=== PATIENT | female | born 1970 | race Two or more races ===

== ENCOUNTER 2024-09-22 19:03 | Inpatient (IN) | payer MEDICAID, OTHER ==
[~2024-09-22] VITALS: Ht 160 cm; Wt 82.2 kg
--- NOTE | 2024-09-22 19:30 | ED.PDOC ---
WEL[employer] COM[employer]ATION HPI Comments 54-year-old female with no significant past medical history presents to the ED with a chief complaint of abnormal vaginal bleeding, with the associated blood clots, weakness, fatigue, in mild shortness of breath. Patient states that her symptoms have been onset for the past 4 weeks, and notes of presenting to [facility] urgent care earlier today where she had a hemoglobin level of 6.3. Patient was advised to present to [facility] for blood transfusion and ultrasound. Patient denies any abdominal pain, current , any nausea, vomiting, diarrhea, or any other associated symptoms, modifying it is felt this time. PHYSICAL EXAM: General: Awake, alert and oriented. No acute distress. Skin: Skin in warm, dry and intact. Appropriate color for ethnicity. HEENT: The head is normocephalic and atraumatic. Conjunctivae are clear without exudates or hemorrhage. Sclera is non-icteric. EOM are intact. No signs of nysta gmus. Eyelids are normal in appearance without swelling or lesions. Oral mucosa is pink and moist Neck: The neck is supple with normal range of motion. No JVD. Cardiac: Tachycardia Respiratory: No signs of respiratory distress. Lung sounds are clear in all lobes bilaterally without rales, rhonchi, or wheezes. Abdominal: No pain upon palpitation, no gross abnormality Extremities: Upper and lower extremities are atraumatic in appearance without deformity or edema. Neurological: The patient is awake, alert and oriented to person, place, and time with normal speech. Speech is clear. There is no facial asymmetry. Psychiatric: Appropriate mood and affect. Good judgement and insight. REVIEW OF SYSTEMS: General: No fever, no chills, or fatigue HEENT: No sore throat, no earache, no congestion, no neck pain. Cardiac: No chest pain. No palpitations. Lungs: No shortness of breath, no cough. GI: No nausea, no vomiting, no diarrhea, no constipation, no abdominal pain : No dysuria, frequency, or urgency. No hematuria. Musculoskeletal: No joint pain , no joint swelling, no extremity edema. Skin: No rash, no itching. Neuro: No headache, no dizziness, no weakness Gynecology: Abnormal vaginal bleeding, blood clots. Chief Complaint: Vaginal Bleed Time Seen by MD: 19:26 Reviewed Notes: Nurses Notes, Medications, Allergies Allergies: Coded Allergies: NO KNOWN ALLERGIES (Unverified , 09/22/24) Information Source: Patient, Relative (Child) Mode of Arrival: Ambulatory Timing: Days Prehospital treatment: None Severity: Moderate Vaginal Discharge: None Vaginal Lesions: None Bleeding Quality: Bright Red, Clotted Vaginal Mass: None Onset Of Mass/Bleeding: Menstrual Sexual Activity: Neither Last Consensual [place]: Unknown Blood Type: Unknown Symptoms of Possible : None Penetration Location: Uncertain Associated Signs and Symptoms: Vaginal Discharge, Vaginal Bleeding Past Medical History PAST MEDICAL HISTORY: Denies Surgical History: Denies all surgeries RESIDENTIAL CARPENTER History: No Pertinent RESIDENTIAL CARPENTER History Family History Family History: Unknown Social History Smoker: Non-Smoker Alcohol: Denies ETOH Use Drugs: Denies Drug Use Lives In: Home Was a procedure done? Was a procedure done?: No Differential Diagnosis (RESIDENTIAL CARPENTER) Vaginal Bleeding: Blood Loss Anemia, Dysmenorrhea, Ectopic , Menometrorrhagia, Menstrual Bleeding, UTI, Vaginitis Mass / Lesion: Bartholin Abscess, Bartholin Cyst, Vaginitis - Bacterial Vaginal Discharge: Physiologic Discharge, , UTI X-Ray, Labs, Meds, VS Vital Signs Date Time Temp Pulse Resp B/P (MAP) Pulse Ox O2 Delivery O2 Flow Rate FiO2 09/22/24 23:08 98.5 101 18 135/74 (94) 96 98.5 09/22/24 19:08 98.5 103 16 135/68 98 98.5 Lab Test 09/22/24 19:42 09/22/24 19:10 Range/Units White Blood Count 10.9 H 4.4-10.8 10^3/uL Red Blood Count 3.05 L 4.0-5.20 10^6/uL Hemoglobin 6.9 *L 12.2-16.2 g/dL Hematocrit 21.9 L 36.0-46.0 % Mean Corpuscular Volume 71.8 L 80.0-100.0 fL Mean Corpuscular Hemoglobin 22.6 L 28.0-32.0 pg Mean Corpuscular Hemoglobin Concent 31.5 L 32.0-36.0 g/dL Red Cell Distribution Width 18.0 H 11.8-14.3 % Platelet Count 430 140-450 10^3/uL Mean Platelet Volume 6.9 6.9-10.8 fL Neutrophils (%) (Auto) 74.0 37.0-80.0 % Lymphocytes (%) (Auto) 18.8 10.0-50.0 % Monocytes (%) (Auto) 6.6 0.0-12.0 % Eosinophils (%) (Auto) 0.1 0.0-7.0 % Basophils (%) (Auto) 0.5 0.0-2.0 % Neutrophils # (Auto) 8.1 1.6-8.6 10 ^3/uL Lymphocytes # (Auto) 2.0 0.4-5.4 10 ^3/uL Monocytes # (Auto) 0.7 0-1.3 10 ^3/uL Eosinophils # (Auto) 0 0-0.8 10 ^3/uL Basophils # (Auto) 0.1 0-0.2 10 ^3/uL Nucleated Red Blood Cells 0.2 % Sodium Level 139 136-145 mmol/L Potassium Level 4.0 3.5-5.1 mmol/L Chloride Level 105 98-107 mmol/L Carbon Dioxide Level 24 20-31 mmol/L Anion Gap 10 5-15 Blood Urea Nitrogen 10 9-23 mg/dL Creatinine 0.86 0.550-1.02 mg/dL Glomerular Filtration Rate Calc 81 >90 mL/min BUN/Creatinine Ratio 11.6 10.0-20.0 Serum Glucose 112 H 74-106 mg/dL Calcium Level 9.2 8.7-10.4 mg/dL Iron Level 15 L 50-170 ug/dL Total Iron Binding Capacity 419 250-425 ug/dL Percent Iron Saturation 3.6 L 15-50 % Beta HCG, Quantitative 0.1 L 1.5-4.2 mIU/mL Urine Color Colorless Yellow Urine Clarity Clear Clear Urine pH 7.5 5.0-9.0 Urine Specific [place] 1.010 1.001-1.035 Urine Protein Negative Negative Urine Ketones Negative Negative Urine Blood 3+ H Negative /uL Urine Nitrite Negative Negative Urine Bilirubin Negative Negative Urine Urobilinogen Normal Negative mg/dL Urine Leukocyte Esterase Negative Negative /uL Urine RBC 168 0 - 4 /hpf Urine Microscopic WBC 1 0-5 /HPF Urine Squamous Epithelial Cells Few <5 /hpf Urine Bacteria None seen None Seen /hpf Urine Glucose Normal Normal mg/dL Urine Test Negative Negative Urine Opiates Screen Neg NEGATIVE Urine Fentanyl Screen Neg NEGATIVE Urine Barbiturates Screen Neg NEGATIVE Urine Phencyclidine Screen Neg NEGATIVE Urine Amphetamines Screen Neg NEGATIVE Urine Benzodiazepines Screen Neg NEGATIVE Urine Cocaine Screen Neg NEGATIVE Urine Cannabinoids Screen Neg NEGATIVE PATIENT: LILLIAN ANN ACCT: [id number] UNIT: [id number] : 1970 LOC: ER ROOM / BED: / AGE / SEX: 54 / F ADM STATUS: REG ER SERVICE 25 ORDERING PHYSICIAN: XUAN GUTIERREZ MD PROCEDURE(s): PELUS - PELVIC REASON: Heavy vaginal bleeding ORDER NUMBER(s): [id number], ACCESSION NUMBER(s): [id number] PELVIC ULTRASOUND WITH TRANSABDOMINAL AND TRANSVAGINAL IMAGING CLINICAL HISTORY: Heavy vaginal bleeding COMPARISON: None TECHNIQUE: Transabdominal and transvaginal grayscale, color-flow Doppler, and duplex Doppler was performed. FINDINGS: The uterus measures 9.1 x 3.9 x 5.6 cm. Heterogeneous structure in the right uterine body measuring approximately 2.4 cm in diameter. Endometrial thickness 0.5 cm. Multiple presumed cervical nabothian cysts are noted. The ovaries are not visualized. Small amount of fluid in the cul-de-sac. IMPRESSION: Approximately 2.4 cm heterogeneous structure in the uterus which may represent a fibroid. This can be further evaluated with MRI. Multiple presumed cervical nabothian cysts. Ovaries are not visualized. Small amount of free fluid in the cul-de-sac is nonspecific and may be physiologic. ENT: LILLIAN ANN ACCT: [id number] UNIT: [id number] : 1970 LOC: ER ROOM / BED: / AGE / SEX: 54 / F ADM STATUS: REG ER SERVICE 08 ORDERING PHYSICIAN: XUAN GUTIERREZ MD PROCEDURE(s): PELTR - TRANSVAGINAL US NON OB REASON: VAG BLEED ORDER NUMBER(s): [id number], ACCESSION NUMBER(s): [id number] PELVIC ULTRASOUND WITH TRANSABDOMINAL AND TRANSVAGINAL IMAGING CLINICAL HISTORY: Heavy vaginal bleeding COMPARISON: None TECHNIQUE: Transabdominal and transvaginal grayscale, color-flow Doppler, and duplex Doppler was performed. FINDINGS: The uterus measures 9.1 x 3.9 x 5.6 cm. Heterogeneous structure in the right uterine body measuring approximately 2.4 cm in diameter. Endometrial thickness 0.5 cm. Multiple presumed cervical nabothian cysts are noted. The ovaries are not visualized. Small amount of fluid in the cul-de-sac. IMPRESSION: Approximately 2.4 cm heterogeneous structure in the uterus which may represent a fibroid. This can be further evaluated with MRI. Multiple presumed cervical nabothian cysts. Ovaries are not visualized. Small amount of free fluid in the cul-de-sac is nonspecific and may be physiologic. Time of 1ST Reevaluation: 21:26 Reevaluation 1ST: Unchanged Patient Education/Counseling: Other (For admission) Family Education/Counseling: Other (Need for admission) Departure 1 Departure Time of Disposition: 21:26 Impression: Primary Impression: Severe anemia Additional Impressions: Abnormal uterine bleeding Uterine fibroid Disposition: ADMITTED INPATIENT Condition: Stable Comments Blood transfusion initiated in ED Patient admitted to hospitalist service for further treatment, evaluation and monitoring. Critical Care Note Critical Care Time?: No Stability Stability form required: No Heart Score Heart Score: Heart Score Response (Comments) Value History N/A 0 EKG N/A 0 Age N/A 0 Risk Factors N/A 0 Troponin N/A 0 Total 0 I personally scribed for XUAN GUTIERREZ MD ([email or web address]) on 09/22/24 at 19:30. Electronically submitted by Anibal Erickson ([email or web address]). I personally scribed for XUAN GUTIERREZ MD ([email or web address]) on 09/22/24 at 20:39. Electronically submitted by Anibal Erickson ([email or web address]). I personally scribed for XUAN GUTIERREZ MD ([email or web address]) on 09/22/24 at 20:40. Electronically submitted by Anibal Erickson ([email or web address]). XUAN GUTIERREZ MD Sep 22, 2024 19:30
[2024-09-22 20:02] LABS: Urine Protein, UAD Negative (Negative)
[2024-09-22 20:14] LABS: Hematocrit 21.9 % (36.0-46.0)
[2024-09-22 20:17] LABS: Chloride 105 mmol/L (98-107); Mean Corpuscular Hemoglobin 22.6 pg (28.0-32.0); Mean Corpuscular Volume 71.8 fL (80.0-100.0); Nucleated Red Blood Cells % 0.2 %; Potassium 4.0 mmol/L (3.5-5.1); Sodium 139 mmol/L (136-145)
[2024-09-22 20:18] LABS: Anion Gap 10 (5-15); Calcium 9.2 mg/dL (8.7-10.4); Carbon Dioxide 24 mmol/L (20-31)
[2024-09-22 20:22] LABS: Hemoglobin 6.9 g/dL (12.2-16.2)
[2024-09-22 20:23] LABS: BUN/Creatinine Ratio 11.6 (10.0-20.0); Blood Urea Nitrogen 10 mg/dL (9-23)
[2024-09-22 20:24] LABS: Glucose 112 mg/dL (74-106)
--- NOTE | 2024-09-22 20:38 | DVH ---
PELVIC ULTRASOUND WITH TRANSABDOMINAL AND TRANSVAGINAL IMAGING CLINICAL HISTORY: Heavy vaginal bleeding COMPARISON: None TECHNIQUE: Transabdominal and transvaginal grayscale, color-flow Doppler, and duplex Doppler was per formed. FINDINGS: The uterus measures 9.1 x 3.9 x 5.6 cm. Heterogeneous structure in the right uterine body measuring a pproximately 2.4 cm in diameter. Endometrial thickness 0.5 cm. Multiple presumed cervical nabothian cysts are noted. The ovaries are not visualized. Small amount of fluid in the cul-de-sac. IMPRESSION: Approximately 2.4 cm heterogeneous structure in the uterus which may represent a fibroid. This can be further evaluated with MRI. Multiple presumed cervical nabothian cysts. Ovaries are not visualized. Small amount of free fluid in the cul-de-sac is nonspecific and may be physiologic.
[2024-09-22 23:54] LABS: Hematocrit 21.0 % (36.0-46.0); Mean Corpuscular Hemoglobin 22.2 pg (28.0-32.0)
[2024-09-22 23:56] LABS: Mean Corpuscular Volume 71.3 fL (80.0-100.0); Nucleated Red Blood Cells % 0.0 %
[2024-09-22 23:59] LABS: Hemoglobin 6.6 g/dL (12.2-16.2)
[2024-09-22 23:59] LABS: Total Iron Binding Capacity 419.0 ug/dL (250-425)
[2024-09-23] VITALS (15 sets, daily range): BP systolic 118–153; BP diastolic 64–79; PULSE 83–111; RESP 14–20; TEMP 97.4–98.7; O2SAT 99–100
[2024-09-23 00:02] LABS: Amphetamine Screen, Urine Neg (NEGATIVE); Barbiturate Scree,Urine Neg (NEGATIVE); Benzodiazephine Screen, Urine Neg (NEGATIVE); Cocaine Screen, Urine Neg (NEGATIVE); Opiate Scree,Urine Neg (NEGATIVE); Phencyclidine Screen, Urine Neg (NEGATIVE)
[2024-09-23 00:03] LABS: Cannabinoid Screen, Urine Neg (NEGATIVE)
[2024-09-23 00:03] LABS: Iron 15.0 ug/dL (50-170)
[2024-09-23 00:11] LABS: Alanine Aminotransferase 19 U/L (7-40); Albumin 4.7 g/dL (3.2-4.8); Alkaline Phosphatase 110 U/L (46-116); Anion Gap 10 (5-15); BUN/Creatinine Ratio 13.1 (10.0-20.0); Blood Urea Nitrogen 11 mg/dL (9-23); Calcium 9.1 mg/dL (8.7-10.4); Carbon Dioxide 24 mmol/L (20-31); Chloride 105 mmol/L (98-107); Potassium 4.0 mmol/L (3.5-5.1); Sodium 139 mmol/L (136-145); Total Protein 7.7 g/dL (5.7-8.2)
[2024-09-23 00:12] LABS: Bilirubin, Total 0.4 mg/dL (0.2-1.0)
--- NOTE | 2024-09-23 00:15 | DVHHPRES ---
History of Present Illness Resident Creating Document: JESSI PLATT RESIDENT History of Present Illness Antonia Hernandez is a 54 year old female with no significant past medical history who presented to the ED with a chief complaint of 3 weeks of abnormal vaginal bleeding (started on 08/29/24), red-brown bleeding, abundant, using approximate 4-5 large pads per day, with large clots, associated with mild fatigue and weakness. Two days ago the weakness exacerbate and start feeling mild shortness of breath with light activity that prompt her visit to the ED. The patient states that her last normal period was on 06/2024 with regular flow. Patient denies previous abnormal vaginal bleeding episodes, menopausal symptoms, hot flashes, mod swings, abdominal pain, current , nausea, vomiting, diarrhea, or any other symptoms. Int he ED the HB was found 6.3mg /dl, Vaginal US showed: Approximately 2.4 cm heterogeneous structure in the uterus which may represent a fibroid. This can be further evaluated with MRI. Multiple presumed cervical nabothian cysts. Ovaries are not visualized. Small amount of free fluid in the cul-de-sac is nonspecific and may be physiologic. Renal/: Other (7 vaginal deliveries, no abortions, last normal menstrual period was June/2024. No menopausal symptoms. ) Past Surgical History: Cholecystectomy, Tonsillectomy Family History: None Smoke: No ALCOHOL: occassional Drugs: None Lives: with Family Review of Systems Constitutional: Yes: Weakness; No: Fever, Chills, Sweats, Malaise, Other Eyes: No: Pain, Vision change, Conjunctivae inflammation, Eyelid inflammation, Other, Redness ENT: No: Ear pain, Ear discharge, Nose pain, Nose discharge, Nose congestion, Mouth pain, Mouth swelling, Throat pain, Throat swelling, Other Respiratory: No: Cough, Dry, Shortness of breath, SOB with excertion, Wheezing, Hemoptysis, Pleuritic Pain, Sputum, Wheezing, Other Cardiovascular: No: Chest Pain, Palpitations, Orthopnea, Paroxysmal Noc. Dyspnea, Edema, Lt Headedness, Other Gastrointestinal: No: Nausea, Vomiting, Abdominal Pain, Diarrhea, Constipation, Melena, Hematochezia, Other Genitourinary: No Dysuria, No Frequency, No Incontinence, No Hematuria, No Retention, No Other Musculoskeletal: No: other, neck pain, shoulder pain, arm pain, back pain, hand pain, leg pain, foot pain Skin: No: Rash, Lesions, Jaundice, Bruising, Other Neurological: No: Weakness, Numbness, Incoordination, Change in speech, Confusion, Seizures, Other Allergies: Coded Allergies: NO KNOWN ALLERGIES (Unverified , 09/22/24) Medications Current Medications Medications Dose Ordered Sig/Bob Route Start Time Stop Time Status Last Admin Dose Admin Pantoprazole Sodium 40 mg DAILY IV 09/23/24 10:00 UNV Ferrous Sulfate 325 mg DAILY PO 09/23/24 10:00 UNV Exam Vital Signs Vital Signs Date Time Temp Pulse Resp B/P (MAP) Pulse Ox O2 Delivery O2 Flow Rate FiO2 09/22/24 23:08 98.5 101 18 135/74 (94) 96 98.5 General Appearance: Alert, Oriented X3, Cooperative, Other (Pale) HEENT: Atraumatic, Mucous membr. moist/pink, Other (Pale conjuctives) Respiratory: Clear to auscultation, Normal air movement Cardiovascular: Regular rate, Normal S1, Normal S2, No murmurs Abdominal: Normal bowel sounds, Soft, No tenderness, No hepatospenomegaly, No masses Extremities: No clubbing, No cyanosis, No edema, Normal pulses, No tenderness/swelling Skin: No rashes, No breakdown, No significant lesion Neuro: Normal gait, Normal speech, Strength at 5/5 X4 ext, Normal tone, Sensation intact, Cranial nerves 3-12 NL Psych/Mental Status: Mental status NL, Mood NL Labs/Xrays Labs Test 09/22/24 19:42 09/22/24 19:10 Range/Units White Blood Count 10.9 H 4.4-10.8 10^3/uL Red Blood Count 3.05 L 4.0-5.20 10^6/uL Hemoglobin 6.9 *L 12.2-16.2 g/dL Hematocrit 21.9 L 36.0-46.0 % Mean Corpuscular Volume 71.8 L 80.0-100.0 fL Mean Corpuscular Hemoglobin 22.6 L 28.0-32.0 pg Mean Corpuscular Hemoglobin Concent 31.5 L 32.0-36.0 g/dL Red Cell Distribution Width 18.0 H 11.8-14.3 % Platelet Count 430 140-450 10^3/uL Mean Platelet Volume 6.9 6.9-10.8 fL Neutrophils (%) (Auto) 74.0 37.0-80.0 % Lymphocytes (%) (Auto) 18.8 10.0-50.0 % Monocytes (%) (Auto) 6.6 0.0-12.0 % Eosinophils (%) (Auto) 0.1 0.0-7.0 % Basophils (%) (Auto) 0.5 0.0-2.0 % Neutrophils # (Auto) 8.1 1.6-8.6 10 ^3/uL Lymphocytes # (Auto) 2.0 0.4-5.4 10 ^3/uL Monocytes # (Auto) 0.7 0-1.3 10 ^3/uL Eosinophils # (Auto) 0 0-0.8 10 ^3/uL Basophils # (Auto) 0.1 0-0.2 10 ^3/uL Nucleated Red Blood Cells 0.2 % Sodium Level 139 136-145 mmol/L Potassium Level 4.0 3.5-5.1 mmol/L Chloride Level 105 98-107 mmol/L Carbon Dioxide Level 24 20-31 mmol/L Anion Gap 10 5-15 Blood Urea Nitrogen 10 9-23 mg/dL Creatinine 0.86 0.550-1.02 mg/dL Glomerular Filtration Rate Calc 81 >90 mL/min BUN/Creatinine Ratio 11.6 10.0-20.0 Serum Glucose 112 H 74-106 mg/dL Calcium Level 9.2 8.7-10.4 mg/dL Urine Color Colorless Yellow Urine Clarity Clear Clear Urine pH 7.5 5.0-9.0 Urine Specific [place] 1.010 1.001-1.035 Urine Protein Negative Negative Urine Ketones Negative Negative Urine Blood 3+ H Negative /uL Urine Nitrite Negative Negative Urine Bilirubin Negative Negative Urine Urobilinogen Normal Negative mg/dL Urine Leukocyte Esterase Negative Negative /uL Urine RBC 168 0 - 4 /hpf Urine Microscopic WBC 1 0-5 /HPF Urine Squamous Epithelial Cells Few <5 /hpf Urine Bacteria None seen None Seen /hpf Urine Glucose Normal Normal mg/dL Urine Test Negative Negative SEPSIS Sepsis Screen Date sepsis recognized/suspect: Sep 22, 2024 Time Sepsis recognized/suspect: 1907 Recent Procedure: No On Antibiotic Therapy: No Respiratory Rate >20: No Heart Rate >90: Yes Temp<36 C (96.8 F) or >38.3 C: No SBP <90 or MAP <65 mmHG: No New Acute Mental Status Change: No Is the patient on CPAP, BIPAP,: No Physician Orders Type And Screen (09/22/24 19:26) Pelvic (09/22/24 19:26) Transvaginal Us Non Ob (09/22/24 20:09) Administer Blood Products UD (09/22/24 21:25) Admit (09/22/24 23:28) Code Status (09/22/24:28) Vital Signs .PER UNIT PROTOCOL (09/22/24 23:28) Review Orders With Adm.Md (09/22/24 23:28) Bedrest With Bathroom Privileg (09/22/24 23:28) Regular Diet (09/23/24 Breakfast) Notify Md Of Changes From Base (09/22/24 23:28) Advance Directive (09/22/24 23:28) Patient Condition (09/22/24 23:28) Allergies (09/22/24 23:28) Drug Screen (09/22/24 23:28) Notify Md Of Changes From Base (09/22/24 23:28) Complete Blood Count (09/22/24 23:28) Comprehensive Metabolic Panel (09/22/24 23:28) * Ladle Operator Consultation (09/22/24 23:28) Pantoprazole (Protonix) (09/23/24 10:00) Iron Panel (09/22/24 23:28) Ferrous Sulfate Tablet (09/23/24 10:00) Beta Hcg, Quantitative (09/22/24 23:40) Vital Signs Date Time Temp Pulse Resp B/P (MAP) Pulse Ox O2 Delivery O2 Flow Rate FiO2 09/22/24 23:08 98.5 101 18 135/74 (94) 96 98.5 09/22/24 19:08 98.5 103 16 135/68 98 98.5 Laboratory Tests Test 09/22/24 19:42 White Blood Count 10.9 10^3/uL (4.4-10.8) H Assessment/Plan Assessment/Plan #Abnormal vaginal bleeding likely due to symptomatic uterine fibroid. #Severe Anemia Hb: 6.3mg/dl Abdominal and Vaginal US 2 RBC units transfusion WINDROWER OPERATOR consult #Obesity Life style modifications Regular diet DVT prophylaxis- Deambulanting patient PUD prophylaxis Protonics. Goals of care discussed with the patient > 35 min. Discussed plan of care with Dr. Clarke Code status: Full code PCP:Demario Ordonez Plan discussed with: Patient, the patient agrees with the plan. Plan discussed with: Patient My Orders Orders - JESSI PLATT RESIDENT Procedure Category Date Status Time Admit ADMIT 09/22/24 Transmitted 23:28 Code Status CODE 09/22/24 Transmitted 23:28 Vital Signs [facility] 09/22/24 In Process 23:28 Review Orders With [facility] 09/22/24 In Process Adm.Md 23:28 Bedrest With Bathroom [facility] 09/22/24 In Process Privileg 23:28 Regular Diet DIET 09/23/24 Transmitted Breakfast Notify Md Of Changes [facility] 09/22/24 In Process From Base 23:28 Advance Directive [facility] 09/22/24 In Process 23:28 Patient Condition ORDERS 09/22/24 Transmitted 23:28 Allergies [place] 09/22/24 In Process 23:28 Drug Screen LAB 09/22/24 In Process 23:28 Notify Md Of Changes [facility] 09/22/24 In Process From Base 23:28 Complete Blood Count LAB 09/22/24 Logged 23:28 Comprehensive LAB 09/22/24 Logged Metabolic Panel 23:28 * Ladle Operator Consultation CONS 09/22/24 Transmitted 23:28 Pantoprazole [facility] 09/23/24 In Process (Protonix) 10:00 Iron Panel LAB 09/22/24 In Process 23:28 Ferrous Sulfate Tablet [facility] 09/23/24 In Process 10:00 Beta Hcg, Quantitative LAB 09/22/24 Logged 23:40 Common Visit Codes: 26085-ABQEMBQ INP/OBS CARE (HIGH) Secondary Visit Codes: 84910-[id number] CARE PLAN 30 MINUTES JESSI PLATT RESIDENT Sep 23, 2024 00:15
[2024-09-23 00:16] LABS: Glucose 111 mg/dL (74-106)
--- NOTE | 2024-09-23 07:24 | DVHPNRES ---
Progress Note Date Seen: Sep 23, 2024 Resident Creating Document: AMMON NIETO RESIDENT Subjective Review of Systems Antonia Fagan is a 54-year-old female past medical history of Ms. Antonia Fagan is a 54 year old female with no significant past medical history who presented to the ED with a chief complaint of 3 weeks of abnormal vaginal bleeding (started on 08/29/24), red-brown bleeding, abundant, using approximate 4-5 large pads per day, with large clots, associated with mild fatigue and weakness. Two days ago the weakness exacerbate and start feeling mild shortness of breath with light activity that prompt her visit to the ED. The patient states that her last normal period was on 06/2024 with regular flow. Patient denies previous abnormal vaginal bleeding episodes, menopausal symptoms, hot flashes, mod swings, abdominal pain, current , nausea, vomiting, diarrhea, or any other symptoms. Int he ED the HB was found 6.3mg /dl, Vaginal US showed: Approximately 2.4 cm heterogeneous structure in the uterus which may represent a fibroid. This can be further evaluated with MRI. Multiple presumed cervical nabothian cysts. Ovaries are not visualized. Small amount of free fluid in the cul-de-sac is nonspecific and may be physiologic. past history PHX PSx family history: uterine, ovarian cancer home medications menstrual history shows examined at bedside today. Vitals are stable. Objective vital signs Vital Sign Date Time Temp Pulse Resp B/P (MAP) Pulse Ox O2 Delivery O2 Flow Rate FiO2 09/23/24 06:30 97.4 87 16 129/73 97.4 09/23/24 06:00 100 09/23/24 00:33 Room Air* 0 21 Total Intake and Output 09/22/24 09/22/24 09/23/24 15:00 23:00 07:00 Intake Total 1200 ml Output Total 0 ml Balance 1200 ml medications Current Medications Medications Dose Ordered Sig/Bob Route Start Time Stop Time Status Last Admin Dose Admin Pantoprazole Sodium 40 mg DAILY IV 09/23/24 10:00 Ferrous Sulfate 325 mg DAILY PO 09/23/24 10:00 laboratory and microbiology Laboratory Tests 09/22/24 23:48 09/22/24 23:45 Test 09/22/24 23:48 Range/Units Serum Glucose 111 H 74-106 mg/dL Problem List/Assessment/Plan Problem List/Assessment/Plan Abnormal Vaginal bleeding due to fibroid uterus microcytic microchromic anemia patient is a anemia, possible HB 6.6 urinalysis showed 3+ blood Consulted pure culture operator transvaginal ultrasound ordered pelvic ultrasound showed : Approximately 2.4 cm heterogeneous structure in the uterus which may represent a fibroid. This can be further evaluated with MRI. Multiple presumed cervical nabothian cysts. Ovaries are not visualized. Small amount of free fluid in the cul-de-sac is nonspecific and may be physiologic. Blood transfusion Started on ferrous sulfate Regular diet DVT prophylaxis: PUD Prophylaxis: Protonix CC Plasma Assessment Blood Product Administration S: 0400 AMMON NIETO RESIDENT Sep 23, 2024 07:24
[2024-09-23] MEDS: SODIUM CHLORIDE 0.9% 1,000 ML IV ONE (08:50)
[2024-09-23 08:54] LABS: Hemoglobin 9.5 g/dL (12.2-16.2)
[2024-09-23 08:56] LABS: Hematocrit 29.6 % (36.0-46.0); Mean Corpuscular Hemoglobin 24.4 pg (28.0-32.0); Mean Corpuscular Volume 76.0 fL (80.0-100.0); Nucleated Red Blood Cells % 0.0 %
[2024-09-23 09:07] LABS: INR 1.01 (0.9-1.15); Prothrombin Time 10.7 sec (9.3-11.8)
[2024-09-23 09:22] LABS: Alanine Aminotransferase 18 U/L (7-40); Albumin 4.5 g/dL (3.2-4.8); Alkaline Phosphatase 101 U/L (46-116); Anion Gap 8 (5-15); BUN/Creatinine Ratio 9.3 (10.0-20.0); Bilirubin, Total 0.7 mg/dL (0.2-1.0); Blood Urea Nitrogen 8 mg/dL (9-23); Calcium 8.7 mg/dL (8.7-10.4); Carbon Dioxide 26 mmol/L (20-31); Chloride 106 mmol/L (98-107); Glucose 132 mg/dL (74-106); Potassium 3.7 mmol/L (3.5-5.1); Sodium 140 mmol/L (136-145); Total Protein 7.2 g/dL (5.7-8.2)
[2024-09-23] MEDS: PANTOPRAZOLE 40 MG/10 ML VIAL INJ IV SCH (10:01)
[2024-09-23] MEDS: FERROUS SULFATE 325mg EC TAB PO SCH (10:02)
[2024-09-23] MEDS ORDERED: FER325T PO (11:38)
--- NOTE | 2024-09-23 12:08 | DVHDSRES ---
Discharge Summary Date of Admission Resident Creating Document: AMMON NIETO RESIDENT Sep 22, 2024 at 23:28 Date of Discharge: Sep 23, 2024 Admitting Diagnosis Abnormal vaginal bleeding likely due to symptomatic uterine fibroid Labs/Diagnostic Data: Laboratory Results Test 09/23/24 08:26 09/22/24 19:42 09/22/24 19:10 White Blood Count 9.6 10^3/uL (4.4-10.8) Red Blood Count 3.90 10^6/uL (4.0-5.20) Hemoglobin 9.5 g/dL (12.2-16.2) Hematocrit 29.6 % (36.0-46.0) Mean Corpuscular Volume 76.0 fL (80.0-100.0) Mean Corpuscular Hemoglobin 24.4 pg (28.0-32.0) Mean Corpuscular Hemoglobin Concent 32.2 g/dL (32.0-36.0) Red Cell Distribution Width 19.6 % (11.8-14.3) Platelet Count 383 10^3/uL (140-450) Mean Platelet Volume 6.9 fL (6.9-10.8) Neutrophils (%) (Auto) 73.9 % (37.0-80.0) Lymphocytes (%) (Auto) 18.1 % (10.0-50.0) Monocytes (%) (Auto) 7.4 % (0.0-12.0) Eosinophils (%) (Auto) 0.2 % (0.0-7.0) Basophils (%) (Auto) 0.4 % (0.0-2.0) Neutrophils # (Auto) 7.1 10 ^3/uL (1.6-8.6) Lymphocytes # (Auto) 1.7 10 ^3/uL (0.4-5.4) Monocytes # (Auto) 0.7 10 ^3/uL (0-1.3) Eosinophils # (Auto) 0 10 ^3/uL (0-0.8) Basophils # (Auto) 0 10 ^3/uL (0-0.2) Nucleated Red Blood Cells 0.0 % Prothrombin Time 10.7 sec (9.3-11.8) Prothrombin Time INR 1.01 (0.9-1.15) Activated Partial Thromboplast Time 22.0 SEC (24.5-34.5) Sodium Level 140 mmol/L (136-145) Potassium Level 3.7 mmol/L (3.5-5.1) Chloride Level 106 mmol/L (98-107) Carbon Dioxide Level 26 mmol/L (20-31) Anion Gap 8 (5-15) Blood Urea Nitrogen 8 mg/dL (9-23) Creatinine 0.86 mg/dL (0.550-1.02) Glomerular Filtration Rate Calc 81 mL/min (>90) BUN/Creatinine Ratio 9.3 (10.0-20.0) Serum Glucose 132 mg/dL (74-106) Calcium Level 8.7 mg/dL (8.7-10.4) Ferritin 3.3 ng/mL (10-291) Total Bilirubin 0.7 mg/dL (0.2-1.0) Aspartate Amino Transferase (AST) 18 U/L (13-40) Alanine Aminotransferase (ALT) 18 U/L (7-40) Alkaline Phosphatase 101 U/L (46-116) Total Protein 7.2 g/dL (5.7-8.2) Albumin 4.5 g/dL (3.2-4.8) Thyroid Stimulating Hormone (TSH) 2.15 uIU/mL (0.55-4.78) Iron Level 15 ug/dL (50-170) Total Iron Binding Capacity 419 ug/dL (250-425) Percent Iron Saturation 3.6 % (15-50) Beta HCG, Quantitative 0.1 mIU/mL (1.5-4.2) Urine Color Colorless (Yellow) Urine Clarity Clear (Clear) Urine pH 7.5 (5.0-9.0) Urine Specific [place] 1.010 (1.001-1.035) Urine Protein Negative (Negative) Urine Ketones Negative (Negative) Urine Blood 3+ /uL (Negative) Urine Nitrite Negative (Negative) Urine Bilirubin Negative (Negative) Urine Urobilinogen Normal mg/dL (Negative) Urine Leukocyte Esterase Negative /uL (Negative) Urine RBC 168 /hpf (0 - 4) Urine Microscopic WBC 1 /HPF (0-5) Urine Squamous Epithelial Cells Few /hpf (<5) Urine Bacteria None seen /hpf (None Seen) Urine Glucose Normal mg/dL (Normal) Urine Test Negative (Negative) Urine Opiates Screen Neg (NEGATIVE) Urine Fentanyl Screen Neg (NEGATIVE) Urine Barbiturates Screen Neg (NEGATIVE) Urine Phencyclidine Screen Neg (NEGATIVE) Urine Amphetamines Screen Neg (NEGATIVE) Urine Benzodiazepines Screen Neg (NEGATIVE) Urine Cocaine Screen Neg (NEGATIVE) Urine Cannabinoids Screen Neg (NEGATIVE) Other Laboratory Tests 09/23/24 08:26 Brief Hx & Hospital Course: Brief history: Antonia Fagan is a 54-year-old female with no significant past medical history, presented to the ER with a chief complaint of 3 weeks of abnormal vaginal bleeding (started on 08/29/24), red-brown bleeding, abundant, using approximate 4-5 large pads per day, with large clots, associated with mild fatigue and weakness. Two days ago the weakness exacerbate and start feeling mild shortness of breath with light activity that prompt her visit to the ED. The patient stateed that her last normal period was in May with regular flow. Patient denies previous abnormal vaginal bleeding episodes, menopausal symptoms, hot flashes, mod swings, abdominal pain, current , nausea, vomiting, diarrhea, or any other symptoms. She has no family history of endometrial or breast cancer. Hospital course: She was admitted along the lines of sever anemia due to abnormal vaginal bleeding. Initial labs in the ER the Hb was found 6.3mg /dl. Pelvic US showed approximately 2.4 cm heterogeneous structure in the uterus which may represent a fibroid. She was transfused with 2 packs of pRBCs after type and cross match. Supportive management with IV fluids and supplementation with ferrous sulfate. A subsequent transvaginal US showed results similar to US pelvis. ObGyne consulted, recommended outpatient follow up. She is stable for discharge and will follow up closely with ObGyn. Diagnosis: Abnormal vaginal bleeding likely due to symptomatic uterine fibroid. Severe Anemia Microcytic, microchromic anemia due to iron deficiency Obesity cervical nabothian cyst, US finding Discharge plan: Please follow-up with PCP in 1 week Please follow-up in discharge Clinic in 1 week Please follow-up with OBGYN outpatient Continue oral iron 325 mg tablet daily for 30 days Continue home medication Operations or Procedures PELVIC ULTRASOUND WITH TRANSABDOMINAL AND TRANSVAGINAL IMAGING CLINICAL HISTORY: Heavy vaginal bleeding COMPARISON: None TECHNIQUE: Transabdominal and transvaginal grayscale, color-flow Doppler, and duplex Doppler was performed. FINDINGS: The uterus measures 9.1 x 3.9 x 5.6 cm. Heterogeneous structure in the right uterine body measuring approximately 2.4 cm in diameter. Endometrial thickness 0.5 cm. Multiple presumed cervical nabothian cysts are noted. The ovaries are not visualized. Small amount of fluid in the cul-de-sac. IMPRESSION: Approximately 2.4 cm heterogeneous structure in the uterus which may represent a fibroid. This can be further evaluated with MRI. Multiple presumed cervical nabothian cysts. Ovaries are not visualized. Small amount of free fluid in the cul-de-sac is nonspecific and may be physiologic. Condition at Discharge: Stable Final Diagnosis/Problems List Abnormal vaginal bleeding likely due to symptomatic uterine fibroid. Severe Anemia Microcytic, microchromic anemia due to iron deficiency Obesity cervical nabothian cyst, US finding Discharge Disposition: Home Discharge Instruct/Medications Diet: Regular Activity: No Restrictions, As Tolerated Follow Up/Referral: Please follow-up with PCP in 1 week Please follow-up in discharge Clinic in 1 week Please follow-up with OBGYN outpatient Medications: Continue oral iron 325 mg tablet daily for 30 days Continue home medication New Medications: Ferrous Sulfate (Ferrous Sulfate) 325 Mg Tab 325 MG PO DAILY for 30 Days, #30 TAB Scheduled Ferrous Sulfate (Ferrous Sulfate), 325 MG PO DAILY Discharge Statement: "Patient was advised to return to the ER or call 911 if any headaches, dizziness, shortness of breath, chest pain, abdominal pain, bleeding, fevers, or worsening of medical condition. Patient was counseled about treatment plan, medications, possible side effects, patientverbalized understanding. All questions were answered to the best of my ability. This discharge took greater then 30 minutes in planning, reviewing documentation, counseling the patient, and discussing with other team members." ASSESSMENT ASSESSMENT Assessment Abnormal vaginal bleeding likely due to symptomatic uterine fibroid. Severe Anemia Microcytic, microchromic anemia due to iron deficiency Obesity Date of Service: Sep 23, 2024 Billing Provider: RACHID BURTON MD Common Visit Codes: [id number] CARE 30-74 MIN AMMON NIETO RESIDENT Sep 23, 2024 12:08 RACHID BURTON MD Sep 26, 2024 20:38
--- NOTE | 2024-09-23 12:22 | DVHINCON2 ---
Date of service: Sep 23, 2024 Referring Physician hospitalist Reason for Consultation aub History of Present Illness pt is admitted for aub ,anemia and blood transfusion.her last pap was 5 yrs ago pelvic us shows 9 wks size uterus .pt has had no powerhouse tender wk up Past Medical History none Past Surgical History cholesyctectomy Family History na Social History smoker ,5 Allergies: Coded Allergies: NO KNOWN ALLERGIES (Unverified , 09/22/24) Home Meds Active Scripts Ferrous Sulfate (Ferrous Sulfate) 325 Mg Tab, 325 MG PO DAILY for 30 Days, #30 TAB Prov:ELLEFORTUNATO RESIDENT 09/23/24 Current Medications Current Medications Medications (Trade) Dose Ordered Sig/Bob Route PRN Reason Start Time Stop Time Status Last Admin Pantoprazole Sodium (Protonix) 40 mg DAILY IV 09/23/24 10:00 09/23/24 10:01 Ferrous Sulfate 325 mg DAILY PO 09/23/24 10:00 09/23/24 10:02 Review of Systems Constitutional: no fever, chill, weight loss HEENT: no eye pain, no hearing loss, no oral lesion, no scleral icterus Heart: no chest pain, no chest pressure Lung: no cough, no dyspnea with exertion Abdomen: see HPI : no pain with urination, normal appearing urine Musculoskeletal: no joint pain, no muscle pain Neurological: no seizure, no loss of sensation, no weakness in extremities Pysch: no depression, no anxiety Derm: no rash, no jaundice Vital Signs Vital Signs Date Time Temp Pulse Resp B/P (MAP) Pulse Ox O2 Delivery O2 Flow Rate FiO2 09/23/24 11:39 108 135/68 (90) 110 153/75 (101) 111 148/79 (102) 09/23/24 07:30 16 100 Room Air* 0 21 09/23/24 07:30 98.1 98.1 Physical Exam nlSKIN: [] HEENT: [pale conjuctivae] NECK: [nl] CARDIAC: [rrr] PULMONARY: [cta] ABDOMEN: [soft,nt] pelvic- ext gent wnl,cx nl,uterus 9 wks size,adenxa nt ext -no cce Labs/Diagnostic Data Labs Test 09/23/24 08:26 09/22/24 19:42 09/22/24 19:10 Range/Units White Blood Count 9.6 4.4-10.8 10^3/uL Red Blood Count 3.90 L 4.0-5.20 10^6/uL Hemoglobin 9.5 #L 12.2-16.2 g/dL Hematocrit 29.6 #L 36.0-46.0 % Mean Corpuscular Volume 76.0 #L 80.0-100.0 fL Mean Corpuscular Hemoglobin 24.4 L 28.0-32.0 pg Mean Corpuscular Hemoglobin Concent 32.2 32.0-36.0 g/dL Red Cell Distribution Width 19.6 H 11.8-14.3 % Platelet Count 383 140-450 10^3/uL Mean Platelet Volume 6.9 6.9-10.8 fL Neutrophils (%) (Auto) 73.9 37.0-80.0 % Lymphocytes (%) (Auto) 18.1 10.0-50.0 % Monocytes (%) (Auto) 7.4 0.0-12.0 % Eosinophils (%) (Auto) 0.2 0.0-7.0 % Basophils (%) (Auto) 0.4 0.0-2.0 % Neutrophils # (Auto) 7.1 1.6-8.6 10 ^3/uL Lymphocytes # (Auto) 1.7 0.4-5.4 10 ^3/uL Monocytes # (Auto) 0.7 0-1.3 10 ^3/uL Eosinophils # (Auto) 0 0-0.8 10 ^3/uL Basophils # (Auto) 0 0-0.2 10 ^3/uL Nucleated Red Blood Cells 0.0 % Prothrombin Time 10.7 9.3-11.8 sec Prothrombin Time INR 1.01 0.9-1.15 Activated Partial Thromboplast Time 22.0 L 24.5-34.5 SEC Sodium Level 140 136-145 mmol/L Potassium Level 3.7 3.5-5.1 mmol/L Chloride Level 106 98-107 mmol/L Carbon Dioxide Level 26 20-31 mmol/L Anion Gap 8 5-15 Blood Urea Nitrogen 8 L 9-23 mg/dL Creatinine 0.86 0.550-1.02 mg/dL Glomerular Filtration Rate Calc 81 >90 mL/min BUN/Creatinine Ratio 9.3 L 10.0-20.0 Serum Glucose 132 H 74-106 mg/dL Calcium Level 8.7 8.7-10.4 mg/dL Ferritin 3.3 L 10-291 ng/mL Total Bilirubin 0.7 0.2-1.0 mg/dL Aspartate Amino Transferase (AST) 18 13-40 U/L Alanine Aminotransferase (ALT) 18 7-40 U/L Alkaline Phosphatase 101 46-116 U/L Total Protein 7.2 5.7-8.2 g/dL Albumin 4.5 3.2-4.8 g/dL Thyroid Stimulating Hormone (TSH) 2.15 0.55-4.78 uIU/mL Iron Level 15 L 50-170 ug/dL Total Iron Binding Capacity 419 250-425 ug/dL Percent Iron Saturation 3.6 L 15-50 % Beta HCG, Quantitative 0.1 L 1.5-4.2 mIU/mL Urine Color Colorless Yellow Urine Clarity Clear Clear Urine pH 7.5 5.0-9.0 Urine Specific [place] 1.010 1.001-1.035 Urine Protein Negative Negative Urine Ketones Negative Negative Urine Blood 3+ H Negative /uL Urine Nitrite Negative Negative Urine Bilirubin Negative Negative Urine Urobilinogen Normal Negative mg/dL Urine Leukocyte Esterase Negative Negative /uL Urine RBC 168 0 - 4 /hpf Urine Microscopic WBC 1 0-5 /HPF Urine Squamous Epithelial Cells Few <5 /hpf Urine Bacteria None seen None Seen /hpf Urine Glucose Normal Normal mg/dL Urine Test Negative Negative Urine Opiates Screen Neg NEGATIVE Urine Fentanyl Screen Neg NEGATIVE Urine Barbiturates Screen Neg NEGATIVE Urine Phencyclidine Screen Neg NEGATIVE Urine Amphetamines Screen Neg NEGATIVE Urine Benzodiazepines Screen Neg NEGATIVE Urine Cocaine Screen Neg NEGATIVE Urine Cannabinoids Screen Neg NEGATIVE Primary Diagnosis menorrhagia with anemia Plan pt recieved blood transfusion fu out pt for emb and pap will sign off thank you Plan discussed with: Patient Visit Coding OBGYN Date of Service: Sep 23, 2024 Billing Provider: JAMEEL SR DO [employer]ER Common Visit Codes: [id number] OBS CARE (HIGH), 03632-[id number]/[id number] SAME DATE (HIGH) W[employer]ER Consultation Codes: [id number] CONSULT <110MIN JAMEEL SR DO Sep 23, 2024 12:22
== END 2024-09-23 13:05 | disposition home or self-care (01) | DRG 532 ==
LOC: ER 19:03 → OVERFLOW 23:28
PROVIDERS: ADMIT Student in an Organized Health Care Education/Training Program; ATTEND Internal Medicine
PROC: 30233N1 Transfusion of Nonautologous Red Blood Cells into Peripheral Vein, Percutaneous Approach (ICD-10-PCS; principal; 2024-09-23)
DX: D25.9 Leiomyoma of uterus, unspecified (principal); D50.9 Iron deficiency anemia, unspecified; E66.9 Obesity, unspecified; F17.200 Nicotine dependence, unspecified, uncomplicated; N88.8 Other specified noninflammatory disorders of cervix uteri; Z68.32 Body mass index [BMI] 32.0-32.9, adult; Z90.49 Acquired absence of other specified parts of digestive tract
CPT/HCPCS: 36415; 36430; 76830; 76856; 80048; 80053; 80307; 81001; 81025; 82728; 83540; 83550; 84443; 84702; 85025; 85610; 85730; 86850; 86900; 86901; 86920; G0378; J2470